=== PATIENT | male | born 1965 | race Hispanic/Latino ===

== ENCOUNTER 2022-10-09 03:10 | Inpatient (IN) | payer OTHER ==
[~2022-10-09] VITALS: Ht 175.3 cm; Wt 96.0 kg
[2022-10-09] MEDS ORDERED: LABETALOL 20MG SYG IV ONE (03:19)
[2022-10-09 03:26] LABS: BASOPHILS % (AUTO) 0.3 % (0.0-5.0); EOSINOPHILS % (AUTO) 0.8 % (0.0-8.0); HEMATOCRIT 37.6 % (42-54); LYMPHOCYTES % (AUTO) 17.6 % (21.0-51.0); MEAN CORPUSCULAR HEMOGLOBIN 28.6 pg (27.0-33.0); MEAN CORPUSCULAR HGB CONC 35.6 g/dL (32.0-36.0); MEAN CORPUSCULAR VOLUME 80.3 fL (79-99); MONOCYTES % (AUTO) 5.8 % (3.0-13.0); NEUTROPHILS % (AUTO) 75.3 % (40.0-77.0); PLATELET COUNT (AUTO) 216 K/uL (130-400); RED BLOOD CELL COUNT(AUTO) 4.68 MIL/uL (4.50-6.20); RED CELL DISTRIBUTION WIDTH 12.4 % (11.0-15.5); WHITE BLOOD COUNT (AUTO) 11.6 K/uL (4.8-10.8)
[2022-10-09] MEDS ORDERED: LABETALOL 20MG VIAL IV ONE (03:30)
[2022-10-09 03:36] LABS: POTASSIUM 3.7 mmol/L (3.5-5.1)
[2022-10-09 03:45] LABS: ALBUMIN 3.3 g/dL (3.5-5.0); TOTAL PROTEIN, SERUM 6.8 g/dL (6.0-8.3)
[2022-10-09] MEDS ORDERED: IOHEXOL 350 MG/ML 100ML INFUS..BTL IV ONE (06:45)
[2022-10-09] MEDS ORDERED: ACETAMINOPHEN 325 MG TAB PO PRN (10:30)
[2022-10-09] MEDS ORDERED: LOSARTAN 50 MG TABLET PO SCH (10:30)
[2022-10-09] MEDS ORDERED: ONDANSETRON 4MG INJ IVP PRN (10:30)
[2022-10-09] MEDS ORDERED: LOSA100T58 PO (11:07)
[2022-10-09] MEDS ORDERED: JANUMET (11:07)
[2022-10-09] MEDS: INSULIN HUMULIN R 100 UNIT/ML 3ML SQ SCH ×3 (11:30→21:28)
[2022-10-09 13:38] LABS: CHOLESTEROL 204 mg/dL (<200); HDL CHOLESTEROL 41 mg/dL (29-71); LDL DIRECT 138 mg/dL (0-99); TRIGLYCERIDES 159 mg/dL (30-200)
[2022-10-09] MEDS ORDERED: ASPIRIN 81MG CHEW TAB PO ONE (15:30)
[2022-10-09] MEDS ORDERED: ASPIRIN 325MG TAB PO ONE (16:30)
[2022-10-09 17:20] VITALS: BP 165/89
[2022-10-09 20:00] VITALS: BP 152/85
[2022-10-09] MEDS: FAMOTIDINE 20MG TAB PO SCH (21:27)
[2022-10-09] MEDS: ATORVASTATIN 40 MG TABLET PO SCH (21:27)
[2022-10-09] MEDS: INSULIN GLARGINE 100 UNITS/ML 10 ML VIAL SQ SCH (21:31)
[2022-10-10] VITALS: BP 180/89
[2022-10-10 04:00] VITALS: BP 149/77
[2022-10-10 05:18] LABS: BASOPHILS % (AUTO) 0.6 % (0.0-5.0); EOSINOPHILS % (AUTO) 2.4 % (0.0-8.0); HEMATOCRIT 31.8 % (42-54); LYMPHOCYTES % (AUTO) 24.6 % (21.0-51.0); MEAN CORPUSCULAR HEMOGLOBIN 28.7 pg (27.0-33.0); MEAN CORPUSCULAR HGB CONC 34.9 g/dL (32.0-36.0); MEAN CORPUSCULAR VOLUME 82.2 fL (79-99); MONOCYTES % (AUTO) 6.1 % (3.0-13.0); PLATELET COUNT (AUTO) 194 K/uL (130-400); RED BLOOD CELL COUNT(AUTO) 3.87 MIL/uL (4.50-6.20); RED CELL DISTRIBUTION WIDTH 12.6 % (11.0-15.5)
[2022-10-10] MEDS: INSULIN HUMULIN R 100 UNIT/ML 3ML SQ SCH ×4 (05:19→20:22)
[2022-10-10 05:31] LABS: ALBUMIN 2.7 g/dL (3.5-5.0); CREATININE 0.9 mg/dL (0.5-1.5); POTASSIUM 3.4 mmol/L (3.5-5.1); TOTAL PROTEIN, SERUM 5.8 g/dL (6.0-8.3)
[2022-10-10 08:03] VITALS: BP 175/83
[2022-10-10] MEDS: FAMOTIDINE 20MG TAB PO SCH ×2 (08:24→20:21)
[2022-10-10] MEDS: ASPIRIN 81 MG EC TAB PO SCH (08:24)
[2022-10-10] MEDS ORDERED: LOSARTAN 50 MG TABLET PO SCH (09:00)
[2022-10-10] MEDS ORDERED: CLOPIDOGREL 75MG TAB PO SCH (10:00)
[2022-10-10] MEDS ORDERED: AMLODIPINE 5 MG TAB PO SCH (10:00)
[2022-10-10 11:58] VITALS: BP 157/77
[2022-10-10 16:47] VITALS: BP 175/87
[2022-10-10] MEDS: ATORVASTATIN 40 MG TABLET PO SCH (20:21)
[2022-10-10] MEDS: INSULIN GLARGINE 100 UNITS/ML 10 ML VIAL SQ SCH (20:23)
[2022-10-11] VITALS (8 sets, daily range): BP systolic 147–180; BP diastolic 80–93
[2022-10-11 04:27] LABS: BASOPHILS % (AUTO) 0.6 % (0.0-5.0); EOSINOPHILS % (AUTO) 2.5 % (0.0-8.0); HEMATOCRIT 34.5 % (42-54); LYMPHOCYTES % (AUTO) 26.8 % (21.0-51.0); MEAN CORPUSCULAR HEMOGLOBIN 28.6 pg (27.0-33.0); MEAN CORPUSCULAR HGB CONC 34.8 g/dL (32.0-36.0); MEAN CORPUSCULAR VOLUME 82.3 fL (79-99); NEUTROPHILS % (AUTO) 62.8 % (40.0-77.0); PLATELET COUNT (AUTO) 200 K/uL (130-400); RED BLOOD CELL COUNT(AUTO) 4.19 MIL/uL (4.50-6.20); RED CELL DISTRIBUTION WIDTH 12.7 % (11.0-15.5); WHITE BLOOD COUNT (AUTO) 7.1 K/uL (4.8-10.8)
[2022-10-11 05:03] LABS: ALBUMIN 2.7 g/dL (3.5-5.0); CREATININE 0.8 mg/dL (0.5-1.5); MAGNESIUM 1.9 mg/dL (1.80-2.40); POTASSIUM 3.4 mmol/L (3.5-5.1); TOTAL PROTEIN, SERUM 5.9 g/dL (6.0-8.3)
[2022-10-11] MEDS: INSULIN HUMULIN R 100 UNIT/ML 3ML SQ SCH ×4 (05:26→20:39)
[2022-10-11] MEDS: CLOPIDOGREL 75MG TAB PO SCH (08:21)
[2022-10-11] MEDS: FAMOTIDINE 20MG TAB PO SCH ×2 (08:21→20:37)
[2022-10-11] MEDS: ASPIRIN 81 MG EC TAB PO SCH (08:22)
[2022-10-11] MEDS: LOSARTAN 50 MG TABLET PO SCH (08:22)
[2022-10-11] MEDS: ATORVASTATIN 40 MG TABLET PO SCH (20:37)
[2022-10-11] MEDS: INSULIN GLARGINE 100 UNITS/ML 10 ML VIAL SQ SCH (20:39)
[2022-10-12] VITALS: BP 163/87
[2022-10-12 04:00] VITALS: BP 156/85
[2022-10-12] MEDS: INSULIN HUMULIN R 100 UNIT/ML 3ML SQ SCH ×3 (05:13→11:31)
[2022-10-12 05:29] LABS: BASOPHILS % (AUTO) 0.5 % (0.0-5.0); EOSINOPHILS % (AUTO) 3.4 % (0.0-8.0); HEMATOCRIT 36.6 % (42-54); LYMPHOCYTES % (AUTO) 27.6 % (21.0-51.0); MEAN CORPUSCULAR HEMOGLOBIN 28.7 pg (27.0-33.0); MEAN CORPUSCULAR HGB CONC 33.9 g/dL (32.0-36.0); MEAN CORPUSCULAR VOLUME 84.7 fL (79-99); MONOCYTES % (AUTO) 7.3 % (3.0-13.0); NEUTROPHILS % (AUTO) 60.8 % (40.0-77.0); PLATELET COUNT (AUTO) 190 K/uL (130-400); RED BLOOD CELL COUNT(AUTO) 4.32 MIL/uL (4.50-6.20); RED CELL DISTRIBUTION WIDTH 12.5 % (11.0-15.5); WHITE BLOOD COUNT (AUTO) 7.3 K/uL (4.8-10.8)
[2022-10-12 05:45] LABS: ALBUMIN 2.6 g/dL (3.5-5.0); CREATININE 0.9 mg/dL (0.5-1.5); POTASSIUM 3.8 mmol/L (3.5-5.1); TOTAL PROTEIN, SERUM 6.1 g/dL (6.0-8.3)
[2022-10-12 07:05] VITALS: BP 157/84
[2022-10-12] MEDS: CLOPIDOGREL 75MG TAB PO SCH (08:14)
[2022-10-12] MEDS: FAMOTIDINE 20MG TAB PO SCH (08:14)
[2022-10-12] MEDS: ASPIRIN 81 MG EC TAB PO SCH (08:14)
[2022-10-12] MEDS: LOSARTAN 50 MG TABLET PO SCH (08:15)
[2022-10-12 11:05] VITALS: BP 143/74
[2022-10-12] MEDS ORDERED: AEC81 PO (11:16)
[2022-10-12] MEDS ORDERED: ATOR40TA69 PO (11:16)
[2022-10-12] MEDS ORDERED: CLOP-31 PO (11:16)
[2022-10-12] MEDS ORDERED: FAMO20TA8 PO (11:16)
[2022-10-12] MEDS ORDERED: SITA1TAB6 PO (11:32)
[2022-10-12] MEDS ORDERED: LOSA100T58 PO (11:32)
== END 2022-10-12 14:30 | disposition home or self-care (01) | DRG 65 ==
LOC: EDH 03:10 → EDHIP 03:11 → UNDOADMIN 10:02 → EDHIP 10:02 → 4AH 16:11
PROVIDERS: ADMIT Hospitalist; ATTEND Hospitalist
DX: I63.9 Cerebral infarction, unspecified (principal); E44.0 Moderate protein-calorie malnutrition; E87.1 Hypo-osmolality and hyponatremia; G81.94 Hemiplegia, unspecified affecting left nondominant side; Z20.822 Contact with and (suspected) exposure to COVID-19; E11.65 Type 2 diabetes mellitus with hyperglycemia; I10 Essential (primary) hypertension; Z79.4 Long term (current) use of insulin; Z82.49 Family history of ischemic heart disease and other diseases of the circulatory system; Z83.3 Family history of diabetes mellitus; Z68.31 Body mass index [BMI] 31.0-31.9, adult
CPT/HCPCS: 36415; 70450; 70496; 70498; 70551; 80053; 80061; 82948; 83036; 83735; 84443; 84484; 85025; 87635; 92522; 92610; 93005; 93306; 93356; 96374; 97039; G0378; J1815; Q9967

== ENCOUNTER 2024-07-19 17:24 | Emergency (ER) | payer MEDICAID ==
[~2024-07-19] VITALS: Ht 175.3 cm; Wt 99.8 kg
[~2024-07-19 17:24] MED LIST: AEC81 PO; ATOR40TA69 PO; CLOP-31 PO; FAMO20TA8 PO; LOSA100T59 PO; SITA1TAB6 PO
[2024-07-19] MEDS: BisaCODYL 10 MG SUPP.RECT RC ONE (18:09)
[2024-07-19] MEDS: LACTULOSE 20 GM/30 ML UDCUP PO ONE (18:09)
[2024-07-19] MEDS ORDERED: GOLY4L PO (18:26)
[2024-07-19] MEDS ORDERED: KETO10TA2 PO (18:26)
[2024-07-19] MEDS: ketOROlac 60 MG VIAL (30MG/ML) IM ONE (18:53)
[2024-07-19 19:06] VITALS: BP 143/71; PULSE 75; RESP 18; TEMP 99; O2SAT 98
== END 2024-07-19 19:10 | disposition home or self-care (01) ==
LOC: EDH 17:24
DX: R14.1 Gas pain (principal); R33.9 Retention of urine, unspecified; E11.9 Type 2 diabetes mellitus without complications; I10 Essential (primary) hypertension; Z79.02 Long term (current) use of antithrombotics/antiplatelets; Z79.82 Long term (current) use of aspirin; Z79.84 Long term (current) use of oral hypoglycemic drugs; Z79.899 Other long term (current) drug therapy
CPT/HCPCS: 99283; 74018; 96372; J1885

== ENCOUNTER 2024-07-27 12:07 | Emergency (ER) | payer MEDICAID ==
[~2024-07-27] VITALS: Ht 175.3 cm; Wt 103.9 kg
[~2024-07-27 12:07] MED LIST changes: +GOLY4L PO; +KETO10TA2 PO
[2024-07-27 13:15] LABS: BASOPHILS # (AUTO) 0.02 K/uL (0.00-0.20); BASOPHILS % (AUTO) 0.2 % (0.0-5.0); EOSINOPHILS # (AUTO) 0.03 K/uL (0.00-0.70); EOSINOPHILS % (AUTO) 0.3 % (0.0-8.0); HEMATOCRIT 32.7 % (42-54); IMMATURE GRANULOCYTE ABSOLUTE 0.03 K/uL (0-1); LYMPHOCYTES # (AUTO) 1.1 K/uL (1.0-4.8); LYMPHOCYTES % (AUTO) 11.1 % (21.0-51.0); MEAN CORPUSCULAR HEMOGLOBIN 29.9 pg (27.0-33.0); MEAN CORPUSCULAR HGB CONC 33.9 g/dL (32.0-36.0); MEAN CORPUSCULAR VOLUME 88.1 fL (79-99); MONOCYTES # (AUTO) 0.5 K/uL (0.1-1.0); MONOCYTES % (AUTO) 4.5 % (3.0-13.0); NEUTROPHILS # (AUTO) 8.4 K/uL (1.8-7.7); NEUTROPHILS % (AUTO) 83.6 % (40.0-77.0); PLATELET COUNT (AUTO) 217 K/uL (130-400); RED BLOOD CELL COUNT(AUTO) 3.71 MIL/uL (4.50-6.20); RED CELL DISTRIBUTION WIDTH 12.7 % (11.0-15.5)
[2024-07-27 13:29] LABS: CREATININE 1.8 mg/dL (0.5-1.3); POTASSIUM 4.2 mmol/L (3.5-5.1)
[2024-07-27 13:31] LABS: INR 0.98 (0.85-1.15); PROTHROMBIN TIME 10.6 SEC (9.6-11.6)
[2024-07-27 13:33] LABS: ALBUMIN 3.7 g/dL (3.5-5.0); BILIRUBIN,DIRECT 0.2 mg/dL (0.0-0.3); BILIRUBIN,TOTAL 0.6 mg/dL (0.2-1.0); PARTIAL THROMBOPLASTIN TIME 26.2 SEC (26.3-35.5); TOTAL PROTEIN, SERUM 7.6 g/dL (6.0-8.3)
[2024-07-27] MEDS: ondanSETRON 4MG INJ IVP ONE (13:43)
[2024-07-27] MEDS: morPHINE 2 MG SYG IVP ONE (13:47)
--- NOTE | 2024-07-27 15:31 | HMCIMG ---
CT ABDOMEN/PELVIS W/O CONTRAST REASON: Abdominal pain COMPARISON: None. FINDINGS: Lung bases are clear. There are no focal liver lesions. Liver does not appear enlarged.. Spleen and pancreas appear unremarkable. The gallbladder appears normal as well. There is mild bilateral hydronephrosis and hydroureter. There is severe distention of the urinary bladder. Urinary bladder appears otherwise normal. Prostate size is unremarkable. There is a large amount solid thickened material in the rectosigmoid colon which may represent constipation. Small bowel loops appear unremarkable.. The appendix was not separately identified. There is no evidence of free fluid or intraperitoneal air. There are no focal fluid collections. Aorta and retroperitoneum appear normal as do pelvic soft tissue structures. The anterior abdominal wall is intact. Osseous structures appear unremarkable. IMPRESSION: 1. Marked distention of the urinary bladder, there is mild bilateral hydronephrosis and hydroureter as well. 2. Large amount solid fecal material in the rectosigmoid colon, there may be a mild fecal impaction, the a sending and transverse colon appears filled with fluid. 3. Otherwise unremarkable exam. CT was performed with one or more following dose reduction techniques: automated exposure control, adjustment of the mA and kv according to patient's size, or use of a iterative reconstruction technique.
[2024-07-27] MEDS: polyETHYLene GLYCol 3350 17 GM POWD.PACK PO ONE (15:58)
[2024-07-27] MEDS ORDERED: DOCU-116 PO (17:49)
--- NOTE | 2024-07-27 17:50 | ERN ---
General Chief Complaint: Other Problems Stated Complaint: OTHER Time Seen by MD: 12:14 History of Present Illness Initial Comments 59-year-old male came in for abdominal pain and constipation. Patient says that he has not had bowel movement for couple of weeks. Patient has had similar episodes in the past and had two good disimpaction. Patient said that he is able to urinate without any concerns. Patient says that because he has not really made follow up movement he has been having slow urinary stream. Patient denies nausea or vomiting. Patient otherwise has no concerns. Allergies: Coded Allergies: No Known Drug Allergies (Unverified Allergy, Unknown, 10/09/22) Home Meds Active Scripts Docusate Sodium (Colace) 100 Mg Capsule, 100 MG PO BID for constipation for 10 Days, #20 CAP 0 Refills Prov:RORO MOREIRA MD 07/27/24 Ketorolac Tromethamine (Ketorolac Tromethamine) 10 Mg Tablet, 1 TAB PO Q6HPRN PRN for pain for 5 Days, #20 TAB 0 Refills Prov:WERO JAY NP 07/19/24 Peg 3350/Na Sulf,Bicarb,Cl/KCl (Golytely/Colyte Soln) 236-22.74G Soln, 4000 ML PO AD, #1 UNIT MIXED BOTTLE DIRECTED, DRINK ONE CUP EVERY 10 MINUTES UNTIL STOOLS ARE CLEAR. Prov:WERO JAY NP 07/19/24 Losartan Potassium (Losartan Potassium) 100 Mg Tablet, 100 MG PO DAILY for 30 Days, #30 TAB Prov:ESTRELLA GONZALEZ NP 10/12/22 Sitagliptin Phos/Metformin HCl (Janumet 50-1,000 mg Tablet) 1 Each Tablet, 1 EACH PO DAILY for 30 Days, #30 TAB Prov:ESTRELLA GONZALEZ NP 10/12/22 Famotidine (Famotidine) 20 Mg Tablet, 20 MG PO DAILY for 30 Days, #30 TAB Prov:ESTRELLA GONZALEZ NP 10/12/22 Clopidogrel Bisulfate (Plavix) 75 Mg Tablet, 75 MG PO DAILY for 30 Days, #30 TAB Prov:ESTRELLA GONZALEZ NP 10/12/22 Atorvastatin Calcium (LIPITOR) 40 Mg Tablet, 40 MG PO HS for 30 Days, #30 TAB Prov:ESTRELLA GONZALEZ NP 10/12/22 Aspirin (ASPIRIN 81 MG ECTAB) 81 Mg Ectab, 81 MG PO DAILY for 21 Days, #21 TAB.EC Prov:ESTRELLA GONZALEZ POLITICAL RESEARCHER 10/12/22 Reported Medications Losartan Potassium (Losartan Potassium) 100 Mg Tablet, 100 MG PO DAILY, TAB 10/09/22 Past Medical History Past Medical History: CVA, Hypertension Past Surgical History: None ROS Dictation CONSTITUTIONAL: No chills, no fever, no weakness, no diaphoresis, no malaise. HEAD/FACE: No signs of trauma. EENT: No eye pain, no blurred vision, no tearing, no double vision, no ear pain, no ear discharge, no nose pain, no nasal congestion, no throat pain, no throat swelling, no mouth pain. RESPIRATORY: No cough, no orthopnea, no SOB, no stridor, no wheezing. CARDIOVASCULAR: No chest pain, no edema, no palpitations, no syncope. GASTROINTESTINAL/ABDOMINAL: No abdominal pain, no constipation, no diarrhea, no nausea, no vomiting. GENITOURINARY: No abnormal discharge, no dysuria, no frequent urination, no hematuria. No complaints of pain in the genitals. MUSCULOSKELETAL: No back pain, no gout, no joint pain, no joint swelling, no muscle pain, no muscle stiffness, no neck pain. INTEGUMENTARY: No change in color, no change in hair/nails, no dryness, no lesion, no lumps, no rash. NEUROLOGICAL/PSYCH: No anxiety, not depressed, no emotional problem, no head ache, no numbness, no pre-existing deficit, no history of seizures, no tremors, no weakness. HEMATOLOGIC/LYMPHATIC: Not anemic, no history of blood clots, no apparent bleeding, no bruising, glands not swollen. All Systems Negative, Except as Noted. Physical Exam Physical Exam Dictation VITAL SIGNS: Reviewed. GENERAL APPEARANCE: Alert, oriented x3, no acute distress, obese. HEAD AND FACE: Non-traumatic. EYES: PERRL, pink conjunctivas, eyelid no trauma, anterior chamber clear. EARS: Pinnas intact and no signs of trauma or erythema. Ear canals clear and no discharge. TMs no erythema. NOSE: No discharge, no bleeding. OROPHARYNX: Mouth normal, teeth no caries, tongue pink. Pharynx clear, no erythema. Tonsils no exudates, no abscesses noted. Mucous membrane moist. NECK: Supple, non-tender, no thyromegaly, no masses, no JVD, no bruits. BREAST: Deferred. CHEST: No tenderness, no crepitus, no paradoxical movement, no retractions. LUNGS: Clear, well-ventilated, symmetric, no rales, no wheezing, no rhonchi, no stridor, good breath sounds bilaterally. HEART: Regular rate, regular rhythm, no murmur, no gallops. VASCULAR: No peripheral edema. ABDOMEN: Soft, positive bowel sounds, nondistended, no guarding, nontender, no rebound, no masses no hepatomegaly, no splenomegaly, no Pack's sign, no hernias. RECTAL: Deferred. GENITAL: Deferred. NEUROLOGICAL: Normal speech, gross motor function intact, gross sensory function intact. MUSCULOSKELETAL: Neck nontender, full range of motion, back nontender, full range of motion. EXTREMITIES: Nontender, full range of motion. SKIN: Color pink, dry, no turgor, no rash, no lacerations, no abrasions, no contusions. LYMPHATICS: Deferred. Results Laboratory and Microbiology Lab and Micro Result Laboratory Tests Test 07/27/24 12:58 White Blood Count 10.0 K/uL (4.8-10.8) Red Blood Count 3.71 MIL/uL (4.50-6.20) L Hemoglobin 11.1 g/dL (14.0-18.0) L Hematocrit 32.7 % (42-54) L Mean Corpuscular Volume 88.1 fL (79-99) Mean Corpuscular Hemoglobin 29.9 pg (27.0-33.0) Mean Corpuscular Hemoglobin Concent 33.9 g/dL (32.0-36.0) Red Cell Distribution Width 12.7 % (11.0-15.5) Platelet Count 217 K/uL (130-400) Mean Platelet Volume 10.4 fL (7.5-10.5) Immature Granulocyte % (Auto) 0.3 % (0-1) Neutrophils (%) (Auto) 83.6 % (40.0-77.0) H Lymphocytes (%) (Auto) 11.1 % (21.0-51.0) L Monocytes (%) (Auto) 4.5 % (3.0-13.0) Eosinophils (%) (Auto) 0.3 % (0.0-8.0) Basophils (%) (Auto) 0.2 % (0.0-5.0) Neutrophils # (Auto) 8.4 K/uL (1.8-7.7) H Lymphocytes # (Auto) 1.1 K/uL (1.0-4.8) Monocytes # (Auto) 0.5 K/uL (0.1-1.0) Eosinophils # (Auto) 0.03 K/uL (0.00-0.70) Basophils # (Auto) 0.02 K/uL (0.00-0.20) Absolute Immature Granulocyte (auto 0.03 K/uL (0-1) Nucleated Red Blood Cells 0.0 % (0.0-0.19) Prothrombin Time 10.6 SEC (9.6-11.6) Prothromb Time International Ratio 0.98 (0.85-1.15) Activated Partial Thromboplast Time 26.2 SEC (26.3-35.5) L Sodium Level 133 mmol/L (136-145) L Potassium Level 4.2 mmol/L (3.5-5.1) Chloride Level 99 mmol/L (101-111) L Carbon Dioxide Level 25 mmol/L (21-32) Blood Urea Nitrogen 30 mg/dL (7-18) H Creatinine 1.8 mg/dL (0.5-1.3) H Glomerular Filtration Rate Calc 43 mL/min (>90) Random Glucose 166 mg/dL (70-105) H Total Calcium 9.0 mg/dL (8.5-10.1) Total Bilirubin 0.6 mg/dL (0.2-1.0) Direct Bilirubin 0.2 mg/dL (0.0-0.3) Aspartate Amino Transf (AST/SGOT) 17 U/L (10-37) Alanine Aminotransferase (ALT/SGPT) 30 U/L (12-78) Alkaline Phosphatase 126 U/L (50-136) Total Protein 7.6 g/dL (6.0-8.3) Albumin 3.7 g/dL (3.5-5.0) MDM MDM: Differential diagnosis: Constipation, abdominal pain Rationale: Tests considered and ordered secondary to shared decision making include: Previous outside records reviewed: Old ER visits. Risk of complication and/or morbidity or mortality of patient management: None Medications-Per medication reconciliation Need for hospitalization: Patient does not meet criteria for hospitalization. Need for emergency major/minor surgery: No There are no social concerns with this patient. Prescription drug management Prescriptions will include symptomatic care Patient's prior external medical records from other ER visits were reviewed by me as indicated. Prior testing and results from previous visits were reviewed. Prior tests were taken into account with medical decision making and resource utilization, independent historian/historians were used to obtain complete medical history. I independently interpreted the test that were performed, results were reviewed by me and considered findings on radiology if ordered. Medical management and examination interpretation discussions were had by me with other qualified healthcare professionals as indicated for the patient's care. After MiraLax and Fleet enema patient able to make a bowel movement and feels comfortable. Patient was able to urinate as well after making a bowel movement. Patient has been given referral to follow up with the Gastroenterology and started on stool softeners. Patient agrees and understands with the plan of care. ED Course Orders Procedure Category Date Status Time Cbc With Differential LAB 07/27/24 Complete 12:41 Basic Metabolic Panel LAB 07/27/24 Complete 12:41 Hepatic Function Panel LAB 07/27/24 Complete 12:41 Pt And Ptt LAB 07/27/24 Complete 12:41 Morphine 2mg Syg PHA 07/27/24 Complete (Morphine 2mg Syg) 13:00 Ondansetron 4mg Inj PHA 07/27/24 Complete (Zofran 4mg Inj) 13:00 Ct Abdomen/Pelvis W/O CT 07/27/24 Resulted Contrast 14:30 Polyethylene Glycol PHA 07/27/24 Complete 3350 (Miralax 3350 1 16:00 Fleet Order CPOE 07/27/24 Transmitted 15:39 Vital Signs Date Time Temp Pulse Resp B/P (MAP) Pulse Ox O2 Delivery O2 Flow Rate FiO2 07/27/24 18:01 98.2 80 14 148/60 99 Room Air* 0 21 07/27/24 13:48 98.4 86 16 153/67 98 Room Air* 0 21 07/27/24 12:09 98.2 86 16 188/73 96 Room Air 0 DX & DISP Disposition: Discharge Departure Impression: Primary Impression: Constipation Condition: Stable Scripts Docusate Sodium (Colace) 100 Mg Capsule 100 MG PO BID for constipation for 10 Days, #20 CAP 0 Refills Prov: RORO MOREIRA MD 07/27/24 Referrals: BRUNILDA QUIROS MD (PCP) BRIAN SHORT MD, USMAN I MD Jul 27, 2024 17:50
--- NOTE | 2024-07-27 17:59 | NUR ---
PATIENT WAS ABLE TO HAVE LARGE BM AFTER FLEET ADMIN PER MD INSTRUCTION ALSO WAS ABLE TO PASS 650 ML URINE AFTER BM
[2024-07-27 18:01] VITALS: BP 148/60; PULSE 80; RESP 14; TEMP 98.3; O2SAT 99
== END 2024-07-27 18:16 | disposition home or self-care (01) ==
LOC: EDH 12:07
DX: K59.00 Constipation, unspecified (principal); I10 Essential (primary) hypertension; Z79.02 Long term (current) use of antithrombotics/antiplatelets; Z79.82 Long term (current) use of aspirin; Z79.84 Long term (current) use of oral hypoglycemic drugs; Z79.899 Other long term (current) drug therapy; Z86.73 Personal history of transient ischemic attack (TIA), and cerebral infarction without residual deficits
CPT/HCPCS: 99285; 74176; 96374; 96375; 80076; 80048; 85025; 85610; 85730; 36415; J2270; J2405

== ENCOUNTER 2024-12-11 19:21 | Emergency (ER) | payer MEDICAID ==
[~2024-12-11] VITALS: Ht 175.3 cm; Wt 103.4 kg
[~2024-12-11 19:21] MED LIST changes: +DOCU-116 PO
--- NOTE | 2024-12-11 19:36 | ERN ---
ED Note History of Present Illness Stated Complaint: LOW OXYGEN AND HIGH FEVER Time Seen by MD: 19:22 Dictation: PATIENT IS A 59-YEAR-OLD MALE HERE WITH HIS FROM A LOCAL CLINIC WITH COMPLAINTS OF HAVING FEVER CHILLS A COUGH HE HAS HAD FOR SEVERAL DAYS. IN ADDITION HE HAS HAD NAUSEA VOMITING TODAY TIMES 3-4. FINALLY, STATES AT THE CLINIC HE HAD A HIGH FEVER AND HIS OXYGEN WAS LOW HOWEVER HE HAS NOT HAVE A NOTE FROM HIS DOCTOR. PATIENT HAS A HISTORY OF DIABETES HYPERTENSION. Allergies: Coded Allergies: No Known Drug Allergies (Unverified Allergy, Unknown, 10/09/22) Home Meds Active Scripts Prednisone (Prednisone) 20 Mg Tablet, 1 TAB PO AD for 6 Days, #14 TAB 0 Refills TAKE 1 TAB BY MOUTH THREE TIMES PER DAY X3 DAYS, THEN TAKE 1 TAB BY MOUTH TWICE A DAY X2 DAYS, THEN TAKE 1 TAB BY MOUTH ONCE A DAY X1 DAY. Prov:MARIO SALGUERO MD 12/12/24 Azithromycin (Azithromycin) 250 Mg Tablet, 1 TAB PO AD for 5 Days, #6 TAB 0 Refills 2 the first day followed by 1 for days 2-5 Prov:MARIO SALGUERO MD 12/11/24 Docusate Sodium (Colace) 100 Mg Capsule, 100 MG PO BID for constipation for 10 Days, #20 CAP 0 Refills Prov:RORO MOREIRA MD 07/27/24 Ketorolac Tromethamine (Ketorolac Tromethamine) 10 Mg Tablet, 1 TAB PO Q6HPRN PRN for pain for 5 Days, #20 TAB 0 Refills Prov:WERO JAY NP 07/19/24 Peg 3350/Na Sulf,Bicarb,Cl/KCl (Golytely/Colyte Soln) 236-22.74G Soln, 4000 ML PO AD, #1 UNIT MIXED BOTTLE DIRECTED, DRINK ONE CUP EVERY 10 MINUTES UNTIL STOOLS ARE CLEAR. Prov:WERO JAY NP 07/19/24 Losartan Potassium (Losartan Potassium) 100 Mg Tablet, 100 MG PO DAILY for 30 Days, #30 TAB Prov:ESTRELLA GONZALEZ NP 10/12/22 Sitagliptin Phos/Metformin HCl (Janumet 50-1,000 mg Tablet) 1 Each Tablet, 1 EACH PO DAILY for 30 Days, #30 TAB Prov:ESTRELLA GONZALEZ NP 10/12/22 Famotidine (Famotidine) 20 Mg Tablet, 20 MG PO DAILY for 30 Days, #30 TAB Prov:ESTRELLA GONZALEZ EP SPECIALIST 10/12/22 Clopidogrel Bisulfate (Plavix) 75 Mg Tablet, 75 MG PO DAILY for 30 Days, #30 TAB Prov:ESTRELLA GONZALEZ EP SPECIALIST 10/12/22 Atorvastatin Calcium (LIPITOR) 40 Mg Tablet, 40 MG PO HS for 30 Days, #30 TAB Prov:ESTRELLA GONZALEZ EP SPECIALIST 10/12/22 Aspirin (ASPIRIN 81 MG ECTAB) 81 Mg Ectab, 81 MG PO DAILY for 21 Days, #21 TAB.EC Prov:ESTRELLA GONZALEZ EP SPECIALIST 10/12/22 Reported Medications Losartan Potassium (Losartan Potassium) 100 Mg Tablet, 100 MG PO DAILY, TAB 10/09/22 Past Medical History Past Medical History: CVA, Hypertension Surgical History: None RN Note Reviewed/Agreed w/PFSH: Yes Review of System Dictation CONSTITUTIONAL: NEGATIVE EXCEPT FOR HPI FEVER CHILLS HEAD/FACE: NEGATIVE EXCEPT FOR HPI EENT: NEGATIVE EXCEPT FOR HPI RESPIRATORY: NEGATIVE EXCEPT FOR HPI COUGH WITH THE SOB GASTROINTESTINAL/ABDOMINAL: NEGATIVE EXCEPT FOR HPI NAUSEA VOMITING GENITOURINARY: NEGATIVE EXCEPT FOR HPI MUSCULOSKELETAL: NEGATIVE EXCEPT FOR HPI INTEGUMENTARY: NEGATIVE EXCEPT FOR HPI NEUROLOGICAL/PSYCH: NEGATIVE EXCEPT FOR HPI HEMATOLOGIC/LYMPHATIC: NEGATIVE EXCEPT FOR HPI ALL SYSTEMS NEGATIVE, EXCEPT NOTED ABOVE. 13 POINT REVIEW OF SYSTEMS ASSESSED AND ALL NEGATIVE EXCEPT FOR ABOVE. Initial Vital Sign VS Vital Signs Date Time Temp Pulse Resp B/P (MAP) Pulse Ox O2 Delivery O2 Flow Rate FiO2 12/11/24 19:39 102.0 100 18 180/76 94 Room Air 0 12/11/24 20:05 21 Physical Exam Dictation VITAL SIGNS REVIEWED GENERAL APPEARANCE: ALERT, ORIENTED X 3, MILD ACUTE DISTRESS, WELL DEVELOPED, NOURISHED. OBESE HEAD AND FACE: NON-TRAUMATIC. EYES: PERRL, PINK CONJUNCTIVAS, EYELID NO TRAUMA, ANTERIOR CHAMBER WITH ARCUS SENILIS. EARS: PINNAS INTACT AND NO SIGNS OF TRAUMA OR ERYTHEMA EAR CANALS CLEAR AND NO DISCHARGE TM NO ERYTHEMA NOSE: NO DISCHARGE, NO BLEEDING. OROPHARYNX: MOUTH NORMAL, TONGUE PINK, PHARYNX CLEAR,NO ERYTHEMA, TONSILS NO EXUDATES, NO ABSCESSES NOTED, MUCOUS MEMBRANE MOIST NECK: SUPPLE, NON-TENDER, NO THYROMEGALY, NO MASSES, NO JVD, NO BRUITS BREAST:DEFERRED CHEST:NO TENDERNESS, NO CREPITUS, NO PARADOXICAL MOVEMENT, NO RETRACTIONS LUNGS:CLEAR, WELL-VENTILATED, SYMMETRIC, NO RALES, BILATERAL BREATH SOUNDS CLEAR TO AUSCULTATION/DIMINISHED IN THE BASES HEART: REGULAR RATE, REGULAR RHYTHM, NO MURMUR, NO GALLOPS VASCULAR: NO PERIPHERAL EDEMA, ABDOMEN: SOFT, POSITIVE BOWEL SOUNDS, NONDISTENDED, NO GUARDING, NONTENDER, NO REBOUND, NO MASSES NO HEPATOMEGALY, NO SPLENOMEGALY, NO PATIÑO'S SIGN, NO HERNIAS. RECTAL: DEFERRED GENITAL: DEFERRED NEUROLOGICAL: NORMAL SPEECH, MOTOR FUNCTION INTACT, SENSORY FUNCTION INTACT MUSCULOSKELETAL: NECK NONTENDER, FULL RANGE OF MOTION, BACK NONTENDER, FULL RANGE OF MOTION, EXTREMITIES: NONTENDER, FULL RANGE OF MOTION SKIN: COLOR PINK, DRY, NO TURGOR, NO RASH, NO LACERATIONS, NO ABRASIONS, NO CONTUSIONS. LYMPHATIC: DEFERRED Results (Laboratory/Radiology) Laboratory/Radiology Laboratory Tests Test 12/11/24 20:07 12/11/24 21:20 12/11/24 21:26 White Blood Count 10.8 K/uL (4.8-10.8) Red Blood Count 3.58 MIL/uL (4.50-6.20) L Hemoglobin 10.7 g/dL (14.0-18.0) L Hematocrit 31.2 % (42-54) L Mean Corpuscular Volume 87.2 fL (79-99) Mean Corpuscular Hemoglobin 29.9 pg (27.0-33.0) Mean Corpuscular Hemoglobin Concent 34.3 g/dL (32.0-36.0) Red Cell Distribution Width 12.4 % (11.0-15.5) Platelet Count 175 K/uL (130-400) Mean Platelet Volume 10.8 fL (7.5-10.5) H Immature Granulocyte % (Auto) 0.4 % (0-1) Neutrophils (%) (Auto) 88.4 % (40.0-77.0) H Lymphocytes (%) (Auto) 4.6 % (21.0-51.0) L Monocytes (%) (Auto) 5.6 % (3.0-13.0) Eosinophils (%) (Auto) 0.7 % (0.0-8.0) Basophils (%) (Auto) 0.3 % (0.0-5.0) Neutrophils # (Auto) 9.5 K/uL (1.8-7.7) H Lymphocytes # (Auto) 0.5 K/uL (1.0-4.8) L Monocytes # (Auto) 0.6 K/uL (0.1-1.0) Eosinophils # (Auto) 0.08 K/uL (0.00-0.70) Basophils # (Auto) 0.03 K/uL (0.00-0.20) Absolute Immature Granulocyte (auto 0.04 K/uL (0-1) Nucleated Red Blood Cells 0.0 % (0.0-0.19) White Cell Morphology Comment See comments Sodium Level 133 mmol/L (136-145) L Potassium Level 4.6 mmol/L (3.5-5.1) Chloride Level 99 mmol/L (101-111) L Carbon Dioxide Level 29 mmol/L (21-32) Blood Urea Nitrogen 21 mg/dL (7-18) H Creatinine 1.8 mg/dL (0.5-1.3) H Glomerular Filtration Rate Calc 43 mL/min (>90) Random Glucose 199 mg/dL (70-105) H Lactic Acid Level 1.4 mmol/L (0.8-2.5) Total Calcium 8.4 mg/dL (8.5-10.1) L Troponin I High Sensitivity 37 ng/L (4-75) Influenza Type A Antigen Negative For Type A Influenza Type B Antigen Negative For Type B SARS-CoV-2 Antigen (Rapid) PRESUMPTIVE NEGATIVE Urine Color YELLOW (YELLOW) Urine Appearance CLEAR (CLEAR) Urine pH 6.0 (5.0-8.0) Urine Specific [place] 1.015 (1.001-1.031) Urine Protein 300 mg/dL (NEGATIVE) H Urine Glucose (UA) 50 mg/dL (NEGATIVE) H Urine Ketones 5 mg/dL (NEGATIVE) H Urine Occult Blood SMALL (NEGATIVE) H Urine Nitrate NEGATIVE (NEGATIVE) Urine Bilirubin NEGATIVE mg/dL (NEGATIVE) Urine Urobilinogen 0.2 mg/dL (0.2-1.0) Urine Leukocyte Esterase NEGATIVE Jan/uL Urine RBC 11-25 /HPF (0-1) H Urine WBC 2-5 /HPF (0-1) H Urine Bacteria RARE /HPF (None Seen) Urine Hyaline Casts 0-1 /LPF (0-1 /LPF) Urine Yeast RARE /HPF (None Seen) Exam Type: CHEST 1VW Clinical Information: SOB/COUGH Comparison: None Findings: The lungs are clear of infiltrates. The heart is enlarged. Bony and soft tissue structures of the chest wall are unremarkable. IMPRESSION: Cardiomegaly. Clear lungs. Labs Reviewed?: Yes ED Course ED Course Orders Procedure Category Date Status Time Covid19 (Sars Antigen LAB 12/11/24 Complete Rapid) 19:33 Influenza Type A & B, LAB 12/11/24 Complete Rapid 19:33 Cbc With Differential LAB 12/11/24 Complete 19:33 Blood Cult EMILY 12/11/24 In Process 19:33 Urinalysis Profile LAB 12/11/24 Complete 19:33 Troponin I High LAB 12/11/24 Complete Sensitivity 19:33 Lactic Acid LAB 12/11/24 Complete 19:33 Basic Metabolic Panel LAB 12/11/24 Complete 19:33 Chest 1vw RAD 12/11/24 Resulted 19:33 Ibuprofen 800 Mg Tab PHA 12/11/24 Complete (Motrin) 20:30 Ceftriaxone 1g Vial PHA 12/11/24 Complete (Rocephine 1g Inj) 23:30 Methylprednisolone PHA 12/11/24 Complete Succ 40mg (Solu-Medro 23:30 Current Medications Medications (Trade) Dose Ordered Sig/Cathy Route PRN Reason Start Time Stop Time Status Last Admin Dose Admin Ceftriaxone Sodium (ROCEphine 1G INJ) 1 gm ONCE ONCE IVPB 12/11/24 23:30 12/11/24 23:31 DC 12/11/24 23:56 Ibuprofen (moTRIN) 800 mg ONCE ONCE PO 12/11/24 20:30 12/11/24 20:31 DC 12/11/24 20:51 Methylprednisolone Sodium Succinate (Solu-medROL 40MG) 40 mg ONCE ONCE IVP 12/11/24 23:30 12/11/24 23:31 DC 12/11/24 23:56 Vital Signs Date Time Temp Pulse Resp B/P (MAP) Pulse Ox O2 Delivery O2 Flow Rate FiO2 12/12/24 00:43 99.0 66 18 135/67 97 Room Air* 0 21 12/12/24 00:10 99.1 81 19 138/68 97 Room Air* 0 21 12/11/24 23:00 99.3 83 18 137/79 94 Room Air* 0 21 12/11/24 22:00 99.9 80 17 139/78 95 Room Air* 0 21 12/11/24 21:00 101.3 82 18 148/80 94 Room Air* 0 21 12/11/24 20:51 102.9 12/11/24 20:05 102.9 88 28 168/82 94 Room Air* 0 21 12/11/24 19:39 102.0 100 18 180/76 94 Room Air 0 10:00 p.m. patient was signed out to me by Wero AGGARWAL-patient was sent for evaluation of fever and transient hypoxia. This is a 59-year-old obese male who had cough congestion and a fever of 102 at presentation. Pulse ox was 94% on r oom air Workup done so far-CBC is with a normal limits viral serology was negative for influenza COVID. Urinalysis was also unremarkable. BNP 7 showed a sodium of 133 chloride 99 BUN and creatinine are 21 and 1.8. Lactate is 1.4 Chest x-ray shows subtle changes which could represent a pneumonitis . Empiric antibiotic was given to cover for pneumonia and patient will be discharged to home on outpatient antibiotic therapy. I updated the patient and spouse on available information and possibilities and that his oxygen levels have stayed above 94 to 97% throughout the ER stay and I answered all their questions. Medical Decision Making MDM MDM: Differential diagnosis: Viral syndrome, influenza, pneumonia, bronchitis Rationale: Tests considered and ordered secondary to shared decision making include: Previous outside records reviewed: Old ER visits. Risk of complication and/or morbidity or mortality of patient management: None Medications-Per medication reconciliation Need for hospitalization: Patient does not meet criteria for hospitalization. Need for emergency major/minor surgery: No There are no social concerns with this patient. Prescription drug management Prescriptions will include symptomatic care Patient's prior external medical records from other ER visits were reviewed by me as indicated. Prior testing and results from previous visits were reviewed. Prior tests were taken into account with medical decision making and resource utilization, independent historian/historians were used to obtain complete medical history. I independently interpreted the test that were performed, results were reviewed by me and considered findings on radiology if ordered. Medical management and examination interpretation discussions were had by me with other qualified healthcare professionals as indicated for the patient's care. Problem List Problem List: (1) Pneumonitis (2) Fever DX & DISP Disposition: Discharge Departure Impression: Primary Impression: Pneumonitis Additional Impression: Fever Condition: Stable Scripts Prednisone (Prednisone) 20 Mg Tablet 1 TAB PO AD for 6 Days, #14 TAB 0 Refills TAKE 1 TAB BY MOUTH THREE TIMES PER DAY X3 DAYS, THEN TAKE 1 TAB BY MOUTH TWICE A DAY X2 DAYS, THEN TAKE 1 TAB BY MOUTH ONCE A DAY X1 DAY. Prov: MARIO SALGUERO MD 12/12/24 Azithromycin (Azithromycin) 250 Mg Tablet 1 TAB PO AD for 5 Days, #6 TAB 0 Refills 2 the first day followed by 1 for days 2-5 Prov: MARIO SALGUERO MD 12/11/24 Additional Instructions: Patient and the caregiver have been informed of all the diagnostic tests and the imaging conducted during the today's visit to the emergency room and has verbalized understanding of the results I have personally reviewed and interpreted all diagnostic exams performed here in the ER today as well as the vital signs documented by the nursing staff. The patient is now being discharged to home and should follow up with the primary care physician or the specialist as directed by the ER staff. Follow-up with primary care provider in 1 to 2 days. Take medications as directed here in the emergency room. Okay to continue home medications unless otherwise discussed during your visit in the emergency room today. Return to your nearest emergency room if symptoms worsen or if there is no improvement. Call 911 if you need immediate assistance. Take Tylenol or Motrin [id number] as needed and if no contraindications are present. Increase oral hydration. A wound culture or urine culture was ordered here in the emergency room department please follow-up with primary care provider and advise them to get repeat ports from our facility. If you had any Koko wrap/splints that were applied here, please do not remove them until you see your primary care or specialty. Referrals: BRUNILDA QUIROS MD (PCP) WERO JAY NP Dec 11, 2024 19:36 MARIO SALGUERO MD Dec 11, 2024 23:27
--- NOTE | 2024-12-11 20:07 | HMCIMG ---
Exam Type: CHEST 1VW Clinical Information: SOB/COUGH Comparison: None Findings: The lungs are clear of infiltrates. The heart is enlarged. Bony and soft tissue structures of the chest wall are unremarkable. IMPRESSION: Cardiomegaly. Clear lungs.
[2024-12-11 20:36] LABS: BASOPHILS # (AUTO) 0.03 K/uL (0.00-0.20); BASOPHILS % (AUTO) 0.3 % (0.0-5.0); EOSINOPHILS # (AUTO) 0.08 K/uL (0.00-0.70); EOSINOPHILS % (AUTO) 0.7 % (0.0-8.0); HEMATOCRIT 31.2 % (42-54); IMMATURE GRANULOCYTE ABSOLUTE 0.04 K/uL (0-1); LYMPHOCYTES # (AUTO) 0.5 K/uL (1.0-4.8); LYMPHOCYTES % (AUTO) 4.6 % (21.0-51.0); MEAN CORPUSCULAR HEMOGLOBIN 29.9 pg (27.0-33.0); MEAN CORPUSCULAR HGB CONC 34.3 g/dL (32.0-36.0); MEAN CORPUSCULAR VOLUME 87.2 fL (79-99); MONOCYTES # (AUTO) 0.6 K/uL (0.1-1.0); MONOCYTES % (AUTO) 5.6 % (3.0-13.0); NEUTROPHILS # (AUTO) 9.5 K/uL (1.8-7.7); NEUTROPHILS % (AUTO) 88.4 % (40.0-77.0); PLATELET COUNT (AUTO) 175 K/uL (130-400); RED BLOOD CELL COUNT(AUTO) 3.58 MIL/uL (4.50-6.20); RED CELL DISTRIBUTION WIDTH 12.4 % (11.0-15.5); WHITE BLOOD COUNT (AUTO) 10.8 K/uL (4.8-10.8)
[2024-12-11 20:45] LABS: CREATININE 1.8 mg/dL (0.5-1.3); POTASSIUM 4.6 mmol/L (3.5-5.1)
[2024-12-11] MEDS: ibuPROFEN 800 MG TAB PO ONE (20:51)
[2024-12-11 21:34] VITALS: TEMP 99.9
[2024-12-11 21:37] LABS: APPEARANCE,URINE CLEAR (CLEAR); BILIRUBIN,URINE NEGATIVE (NEGATIVE); COLOR,URINE YELLOW (YELLOW); GLUCOSE, URINE (UA) 50 mg/dL (NEGATIVE); KETONES,URINE 5 mg/dL (NEGATIVE); LEUKOCYTE ESTERASE ,URINE NEGATIVE Leu/uL (NEGATIVE); NITRATE,URINE NEGATIVE (NEGATIVE); OCCULT BLOOD,URINE SMALL (NEGATIVE); PROTEIN,URINE 300 mg/dL (NEGATIVE); UROBILINOGEN,URINE 0.2 mg/dL (0.2-1.0)
[2024-12-11 21:39] LABS: ADD UA MICROSCOPIC YES
[2024-12-11 21:41] LABS: BACTERIA,URINE RARE /HPF (None Seen); HYALINE CASTS, URINE 0-1 /LPF (0-1 /LPF); YEAST,URINE BUDDING RARE /HPF (None Seen)
[2024-12-11 22:03] LABS: COVID19 (SARS ANTIGEN RAPID) PRESUMPTIVE NEGATIVE (NEGATIVE); INFLUENZA TYPE A Negative For Type A (NEGATIVE); INFLUENZA TYPE B Negative For Type B (NEGATIVE)
[2024-12-11] MEDS ORDERED: AZIT250T9 PO (23:27)
[2024-12-11] MEDS: Solu-medROL 40MG VIAL IVP ONE (23:56)
[2024-12-11] MEDS: cefTRIAXone 1G VIAL IVPB ONE (23:56)
[2024-12-12] MEDS ORDERED: PRED20TA3 PO (00:17)
[2024-12-12 00:43] VITALS: BP 135/67; PULSE 66; RESP 18; TEMP 99; O2SAT 97
== END 2024-12-12 00:45 | disposition home or self-care (01) ==
LOC: EDH 19:21
DX: J18.9 Pneumonia, unspecified organism (principal); R50.9 Fever, unspecified; I10 Essential (primary) hypertension; Z79.02 Long term (current) use of antithrombotics/antiplatelets; Z79.82 Long term (current) use of aspirin; Z79.84 Long term (current) use of oral hypoglycemic drugs; Z79.899 Other long term (current) drug therapy; Z86.73 Personal history of transient ischemic attack (TIA), and cerebral infarction without residual deficits; Z20.822 Contact with and (suspected) exposure to COVID-19
CPT/HCPCS: 99285; 96365; 71045; 96375; 87426; 84484; 80048; 85025; 87040 ×2; 87804 ×2; 83605; 81001; 36415; J2919; J0696; 99284